=== PATIENT | male | born 1945 | race Caucasian/White ===

== ENCOUNTER → 2016-07-04 | Outpatient (CLI) | payer OTHER, MEDICARE | LOC: BHFA 14:00 | PROVIDERS: ATTEND Internal Medicine Cardiovascular Disease | DX: I25.10 Atherosclerotic heart disease of native coronary artery without angina pectoris (principal) ==

== ENCOUNTER → 2017-06-10 | Day surgery (SDC) | payer OTHER, MEDICARE ==
[~2017-06-10] MED LIST: ACLIDINIUM BROMIDE 400 MCG IH SCH; ALBUTEROL 60 PUFFS/8 GM MDI IH PRN; ASPIRIN 325 MG TAB PO SCH; ASPIRIN EC 325 MG TAB PO ONE; ATORVASTATIN CALCIUM 20 MG TAB PO SCH; ATROPINE SULFATE 1 MG/10 ML SYR IVP PRN; ATROPINE SULFATE 1 MG/10 ML SYR ONE; BUDESONIDE/FORMOTEROL 160/4.5 60 PUFFS/MDI IH SCH; CHOLECALCIFEROL VIT D3 1,000 UNITS TAB PO SCH; DIAZEPAM 5 MG TAB ONE; DIAZEPAM 5 MG TAB PO ONE; FAMOTIDINE 20 MG TAB ONE; FAMOTIDINE 20 MG TAB PO ONE; FLUTICASONE NASAL 120 SPRAYS/16 GM MDI EACHNARE SCH; HYDROCODONE/APAP 5/325 TAB PO PRN; INSULIN GLARGINE 100 UNITS/ML SYRINGE SC SCH; IOPAMIDOL (ISOVUE-370) 150 ML BTL IV ONE; IPRATROPIUM/ALBUTEROL 3 ML DEYVIAL IH SCH; LIDOCAINE 1% 300 MG/30 ML SDV ONE; MIDAZOLAM 2 MG/2 ML VIAL ONE; NEBIVOLOL HCL 5 MG TAB PO SCH; NITROGLYCERIN 0.4 MG BTL SL PRN; NON-FORMULARY NEW DRUG (Omeprazole [Prilosec 20 Mg] 20 MG) PO SCH; NS 1,000 ML IV ONE; OMEGA-3 FATTY ACIDS 1,000 MG CAP PO SCH; ONDANSETRON 4 MG/2 ML VIAL IVP PRN; OXYCODONE/APAP 5/325 TAB PO PRN; VITAMIN B COMPLEX 1 EA CAP/TAB PO SCH; diphenhydrAMINE 25 MG CAP PO ONE; fentaNYL 100 MCG/2 ML INJ ONE; glipiZIDE 10 MG TAB PO SCH
--- NOTE | 2017-06-10 07:58 | CPEKG ---
Heart Rate: 48 RR Interval: 1250 P-R Interval: 200 QRSD Interval: 94 QT Interval: 444 QTC Interval: 397 P [place]: 41 QRS [place]: 56 T Wave [place]: 82 EKG Severity - ABNORMAL ECG - EKG Impression: SINUS BRADYCARDIA EKG Impression: ATRIAL PREMATURE COMPLEX Electronically Signed By: Henry Martins 10-Jun-2017 14:58:41
[2017-06-10 08:11] LABS: PLATELET COUNT 290 10^3/uL (150-400)
--- NOTE | 2017-06-10 08:36 | PDHPUP ---
History & Physical Update H&P update statement: This history and physical update is based on an assessment of the patient which was completed after admission or registration (within 24 hours), but prior to the surgery/procedure. H&P update: H&P reviewed & patient examined, no change in patient's condition since H&P completed
--- NOTE | 2017-06-10 08:36 | PDPROPOC ---
Sedation Plan of Care Sedation Plan of Care: vital signs stable, mental status noted, patient educated of risks, benefits, alternatives, patient can tolerate sedation ASA Classification: ASA 2 Planned drugs: fentanyl, midazolam Mallampati Score: Class 2 Mallampati Reference Image: Patient passed 3-3-2 rule?: Yes
[2017-06-10 08:39] LABS: INR 1.05 (0.83-1.16); PROTIME(PATIENT) 13.9 SEC (12.0-15.0)
--- NOTE | 2017-06-10 11:12 | CPIP ---
[f rep st] INVASIVE CARDIAC PROCEDURE DATE OF PROCEDURE: 06/10/2017 PROCEDURE PERFORMED: 1. Coronary angiography. 2. Bypass graft angiography. 3. Left ventriculography. 4. Right heart catheterization. INDICATION: 1. Dyspnea on exertion concerning for class 3 heart failure versus anginal equivalent. 2. Known coronary artery disease status post previous bypass grafting surgery. ACCESS: Patient was prepped and draped in a sterile fashion. 1% lidocaine was used to anesthetize t he right inguinal region. A 6-Beninese introducer sheath was placed selectively into the right common femoral artery via modified Seldinger technique. A 7-Beninese introducer sheath was placed selectively in the right common femoral vein via modified Seldinger technique. CORONARY ANGIOGRAPHY: A 6-Beninese JL4 was advanced to the left main coronary artery and images obtain ed. The left main coronary artery bifurcated into an LAD and circumflex coronary arteries. The left main coronary artery had a distal 70% stenosis present. The left anterior descending coronary arter y was a large vessel and gave rise to 3 prominent diagonal branches. The left anterior descending co ronary artery was 100% occluded in the mid segment. The circumflex coronary artery was a small vessel and gave rise to 1 small posterolateral branch. The circumflex coronary artery had an ostial of 70% stenosis present. A 6-Beninese JR4 was advanced to the right coronary artery and images obtained. Th e right coronary artery was 100% occluded in the proximal segment. BYPASS GRAFT ANGIOGRAPHY: A 6-Beninese JR4 was used to engage the saphenous vein graft to diagonal 1 a rtery. The saphenous vein graft to diagonal artery was widely patent. The 6-Beninese JR4 was used to e ngage the skip graft which is a saphenous vein graft to diagonal 2 and diagonal 3. The saphenous vein graft to diagonal 2 and diagonal 3 arteries was widely patent. The 6-Beninese JR4 was used to non-shira ectively engage the MARE to RCA graft. The MARE to RCA graft was widely patent. A 6-Beninese JR4 was u sed to engage the COLLINS to LAD graft. The COLLINS to LAD graft was widely patent. LEFT VENTRICULOGRAPHY: A 6-Beninese pigtail catheter was advanced into the left ventricle and images o btained. The left ventricle was mildly dilated in size with reduced systolic function. Estimated ej ection fraction was 20% there was global left ventricular hypokinesis. The left ventricular end-alvarado tolic pressure was 20 mmHg. RIGHT HEART CATHETERIZATION: A Bondurant-Yvonne catheter was advanced into the right atrium and pressure ob tained. The right atrial pressure was 10 mmHg. The catheter was then advanced into the right ventri vicente and pressure obtained. The right ventricular pressure was 55/6 mmHg. Catheter was then advanced in the pulmonary artery position and the pulmonary artery pressure was 51/20 mmHg with a mean pulmon volodymyr artery pressure of 32 mmHg. The catheter was then advanced in the wedge position and pressure ob tained. The pulmonary capillary wedge pressure was 20 mmHg. The catheter was then withdrawn and sat urations were obtained in the femoral artery and pulmonary artery. The femoral artery saturation was 94%. The pulmonary artery saturation was 66.5%. Cardiac output was 4.5, a cardiac index 2.5. COMPLICATIONS: None. CONCLUSIONS: 1. Three-vessel coronary artery disease. 2. Patent bypass grafts to the right coronary artery, left anterior descending coronary artery, diag onal 1 coronary artery, diagonal 2 coronary artery and diagonal 3 coronary artery. 3. Global left ventricular systolic dysfunction with an estimated ejection fraction 20%. 4. Pulmonary hypertension with a mean pulmonary artery pressure of 32 mmHg. The transpulmonary grad ient was 12, indicating a component of left heart failure. 5. Plan is for medical management. 6. Consider ICD placement. /[id number]/MODL
== END | disposition home or self-care (01) ==
LOC: FCATH 07:34
PROVIDERS: ATTEND Internal Medicine Cardiovascular Disease
PROC: B2171ZZ Fluoroscopy of Right Internal Mammary Bypass Graft using Low Osmolar Contrast (ICD-10-PCS; principal; 2017-06-10)
PROC: B2181ZZ Fluoroscopy of Left Internal Mammary Bypass Graft using Low Osmolar Contrast (ICD-10-PCS; principal; 2017-06-10)
PROC: B2151ZZ Fluoroscopy of Left Heart using Low Osmolar Contrast (ICD-10-PCS; principal; 2017-06-10)
PROC: B2111ZZ Fluoroscopy of Multiple Coronary Arteries using Low Osmolar Contrast (ICD-10-PCS; principal; 2017-06-10)
PROC: 4A023N8 Measurement of Cardiac Sampling and Pressure, Bilateral, Percutaneous Approach (ICD-10-PCS; principal; 2017-06-10)
DX: I25.10 Atherosclerotic heart disease of native coronary artery without angina pectoris (principal); I27.20 Pulmonary hypertension, unspecified; Z95.1 Presence of aortocoronary bypass graft; E11.21 Type 2 diabetes mellitus with diabetic nephropathy
CPT/HCPCS: J0461; J1644; J2250; J3010; Q9967

== ENCOUNTER → 2017-10-14 | Outpatient (CLI) | payer OTHER, MEDICARE | LOC: BHFA 10:00 | PROVIDERS: ATTEND Internal Medicine Cardiovascular Disease | DX: I25.10 Atherosclerotic heart disease of native coronary artery without angina pectoris (principal); I50.9 Heart failure, unspecified ==

== ENCOUNTER → 2018-09-08 | Outpatient (CLI) | payer OTHER, MEDICARE | LOC: FIMAGING 15:32 | DX: J90 Pleural effusion, not elsewhere classified (principal); J98.4 Other disorders of lung; K76.89 Other specified diseases of liver; D73.89 Other diseases of spleen; R91.1 Solitary pulmonary nodule; I25.10 Atherosclerotic heart disease of native coronary artery without angina pectoris ==